=== PATIENT | male | born 1980 | race Caucasian/White ===

== ENCOUNTER 2019-09-28 05:23 | Day surgery (SDC) | payer OTHER, SELFPAY ==
[2019-09-14 13:00] VITALS: BMI 25.8
[2019-09-28] VITALS (9 sets, daily range): BP systolic 110–133; BP diastolic 73–115; PULSE 57–79; RESP 16; TEMP 35.9–36.3; O2SAT 96–100; BMI 27.8
--- NOTE | 2019-09-28 05:49 | PCM.HP.BLA ---
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 Enoch Choi MD) Ganglion cyst (Acute) Epididymitis (Acute) Family history of malignant neoplasm of colon in father (Acute) Screening for malignant neoplasm of intestine (Acute) Family history of colon cancer (Acute) Testicular pain (Acute) Surgical History (Updated 09/14/19 @ 12:58 by Brittny Jha) History of tonsillectomy (Acute) Family History (Updated 09/14/19 @ 12:58 by Brittny Jha) Father Colon cancer Grandfather Colon cancer Social History (Updated 09/14/19 @ 13:[address] Enoch Choi MD) Smoking Status: Never smoker alcohol intake: current alcohol intake frequency: a few times a month substance use type: does not use HPI HPI HPI: AURELIA RIVERA, is a 39 M who presents to the office today for surgical consultation regarding a screening colonoscopy. The patient is referred by his primary care is Dr. Eduardo Ulrich and a written complement surgical consult recommendations will be returned to him. The patient also has concerns. He has had a remote bilateral partial vasectomy as a means of sterilization. In the past 2 years he has had 2 episodes of epididymitis. Most recent episode was approximately 1 week ago but he got that to resolve with ice and ibuprofen. He did not require antibiotics. Finally while the patient was here he asked about a ganglion cyst of the left wrist. 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 He is very aggressive with the activity and use of his hands arms. His family history is notable that his father had colon cancer in his 50s. Paternal grandfather had colon cancer. Maternal grand father had colon cancer. He denies any previous endoscopy. He denies bright red blood per rectum or melena. He denies any expected weight loss. He is not aware of any polyposis syndromes in his family. He is not aware of any known inherited genetic defect. HPI HPI HPI: AURELIA RIVERA, is a 39 M who presents to the office today for ROS General General: No weight change, appetite, fatigue, colon cancer, breast cancer or weakness HEENT HEENT: No difficulty swallowing, eye injury, eye surgery, swollen glands or hoarseness Endo Endocrine: No thyroid disease, diabetes mellitus, thyroid cancer, Hair loss, heat intolerance or cold intolerance Skin Skin: No rash or changing moles Breast Breast: No left breast lump, right breast lump, nipple discharge, breast pain, abnormal mammogram, abnormal US or breast enlargement Musc Musculoskeletal: No back problems, arthritis, rheumatoid arthritis, gout or joint pain Cardio Cardiovascular: No murmur, pacemaker, heart disease, atrial fibrillation, high blood pressure, heart attack, heart stent, palpitations, shortness of breat with exertion or chest pain Psych Psychiatric: No depression, anxiety or hearing voices Resp Respiratory: No shortness of breath, No sleep apnea, No cough, No COPD, No asthma, No emphysema, No wheezing Gastro Gastrointestinal: No abdominal pain, No nausea or vomiting, No diarrhea, No constipation, No blood in stool, No acid reflux, No hemorrhoids, No ulcers, No gallbladder problem, No black,tarry stools Samy Hematologic: No blood thinners, No blood disorders, No bleeding, No anemia, No blood clots Neuro Neurologic: No system reviewed and no additional complaints, except as docu, No as per HPI, No abnormal walking, No abnormal hearing, No abnormal movements, No abnormal speech, No behavioral changes, No burning sensations, No confusion, No seizure-like activity, No unsteadiness, No dizziness, No localized weakness, No frequent falls, No headache(s), No lack of coordination, No loss of vision, No memory loss, Yes numbness, No other visual disturbances, No radiating pain, No restless legs, No sensory deficit, No fainting, Yes tingling, No tremor(s), No weakness, No other Exam Const General: cooperative, healthy appearing, comfortable, no acute distress Nutritional Appearance: average body habitus, well nourished Orientation: alert, awake HENMT Head: normal to inspection Chest Breast Palpation: No nipple discharge Resp Effort & Inspection: normal respiratory effort Auscultation: clear to auscultation bilaterally Cardio Rate: regular rate Rhythm: regular rhythm Heart Sounds: no murmurs GI Palpation: soft, no hepatosplenomegaly Auscultation: normal bowel sounds Neuro General: alert, awake Cognition: normal cognition Extrem General: calf tenderness Other: 2 cm diameter ganglion cyst radial volar aspect left wrist Psych Affect: normal affect Assessment & Plan Problems 1. Screening for malignant neoplasm of intestine Z12.10 2. Family history of malignant neoplasm of colon in father Z80.0 3. Epididymitis N45.1 4. Ganglion cyst M67.40 Plan I recommended the patient a screening colonoscopy with possible biopsy or polypectomy as indicated. He is aware of the technique, benefit, risk, alternatives. He has had an opportunity to ask and have questions answered. He is aware of the COVID 19 pandemic. He is aware that [facility] a [facility] local incidence. Regarding the patient's epididymitis he has had 2 episodes over an 8-year period of time. He was able to get his most recent episode resolved with ibuprofen and ice. I do not believe that surgical treatment will be required. He is aware that if he has further recurrence that urology consultation would be pertinent. Regarding the ganglion cyst left wrist it is completely asymptomatic. It is not limiting his ability. With that in mind I am not recommending any type of aspiration or steroid injection or excisional treatment. I appreciate the opportunity of assisting with his surgical care. We will proceed with scheduling colonoscopy as indicated. Cc: Dr. Eduardo Choi M.D., F.A.C.S. Coding Level of Care Code 23038 Diagnoses Screening for malignant neoplasm of intestine Z12.10 Family history of malignant neoplasm of colon in father Z80.0 Epididymitis N45.1 Ganglion cyst M67.40 I have re-examined the patient. There are no clinical changes since date of exam. Procedure Criteria Procedure Type: Elective COVID Risk Discussion: The surgeon/proceduralist and patient have discussed in detail the risk of exposure to and/or potential harm posed by the COVID-19 virus with having a surgery/procedure at this time versus the risk of delaying the surgery/procedure. It is not possible to know either the risk of delaying the surgery or procedure or chance of getting an infection with perfect accuracy, but a joint decision was made between the patient and the surgeon/proceduralist to proceed at this time with the scheduled surgery/procedure as indicated on the consent form.
[2019-09-28] MEDS: Lactated Ringers 1,000 ML 100 ML IV (06:07)
--- NOTE | 2019-09-28 06:52 | OP.CCLET_ITS ---
09/28/2019 Eduardo Ulrich [address] [place] [address] Re : Colonoscopy procedure for Estuardo Christie Dear Dr. Ulrich This procedure was performed on Saturday, September 28, 2019. My impressions and recommendations are as follows: Impressions : - Non-thrombosed internal hemorrhoids and internal hemorrhoids that prolapse with straining, but spontaneously regress to the resting position (Grade II) found on digital rectal exam. - The entire examined colon is normal. - No specimens collected. Recommendations : - Discharge patient to home. - Resume previous diet. - Continue present medications. - Repeat colonoscopy in 5 years for surveillance. My findings are described in the full procedure note, which is enclosed. If I can be of further assistance, please feel free to contact me at Doctor phone number(s): Work: . Sincerely, Enoch Choi MD 09/28/2019 6:52:34 AM This report has been signed electronically.
--- NOTE | 2019-09-28 06:52 | OP.COLON_ITS ---
Patient Name: Estuardo Christie Procedure Date: 09/28/2019 5:47 AM Date of : 1980 Age: 39 Procedure: Colonoscopy Indications: Family history of colon cancer in a first-degree relative Providers: Enoch Choi MD Referring MD: Eduardo Ulrich Medicines: Midazolam 5 mg IV, Meperidine 100 mg IV, Ondansetron 4 mg IV Patient Profile: Last Colonoscopy: none. The patient's first colonoscopy is today. Complications: No immediate complications. Procedure: Pre-Anesthesia Assessment: - Prior to the procedure, a History and Physical was performed, and patient medications and allergies were reviewed. The patient's tolerance of previous anesthesia was also reviewed. The risks and benefits of the procedure and the sedation options and risks were discussed with the patient. All questions were answered, and informed consent was obtained. Prior Anticoagulants: The patient has taken no previous anticoagulant or antiplatelet agents. ASA Grade Assessment: II - A patient with mild systemic disease. After reviewing the risks and benefits, the patient was deemed in satisfactory condition to undergo the procedure. After I obtained informed consent, the scope was passed under direct vision. Throughout the procedure, the patient's blood pressure, pulse, and oxygen saturations were monitored continuously. The pediatric colonoscope was introduced through the anus and advanced to the cecum, identified by appendiceal orifice and ileocecal valve. The colonoscopy was performed without difficulty. The patient tolerated the procedure well. The quality of the bowel preparation was good. The ileocecal valve and the appendiceal orifice were photographed. Moderate Sedation: Moderate (conscious) sedation was personally administered by the endoscopist. The following parameters were monitored: oxygen saturation, heart rate, blood pressure, and response to care. Total physician intraservice time was 15 minutes. Scope In: 6:37:40 AM Scope Withdrawal Time 0 hours 6 minutes 34 seconds Scope Out: 6:47:02 AM Total Procedure Duration Time 0 hours 9 minutes 22 seconds Findings: The digital rectal exam findings include non-thrombosed internal hemorrhoids and internal hemorrhoids that prolapse with straining, but spontaneously regress to the resting position (Grade II). Pertinent negatives include normal prostate (size, shape, and consistency). The colon (entire examined portion) appeared normal. Impression: - Non-thrombosed internal hemorrhoids and internal hemorrhoids that prolapse with straining, but spontaneously regress to the resting position (Grade II) found on digital rectal exam. - The entire examined colon is normal. - No specimens collected. Recommendation: - Discharge patient to home. - Resume previous diet. - Continue present medications. - Repeat colonoscopy in 5 years for surveillance. Procedure Code(s): --- Professional --- 89332, Colonoscopy, flexible; diagnostic, including collection of specimen(s) by brushing or washing, when performed (separate procedure) 48056, 59, Moderate sedation services provided by the same physician or other qualified health health care coordinator performing the diagnostic or therapeutic service that the sedation supports, requiring the presence of an independent trained observer to assist in the monitoring of the patient's level of consciousness and physiological status; initial 15 minutes of intraservice time, patient age 5 years or older Diagnosis Code(s): --- Professional --- K64.1, Second degree hemorrhoids Z80.0, Family history of malignant neoplasm of digestive organs CPT copyright 2017 [employer]. All rights reserved. The codes documented in this report are preliminary and upon pipe turner review may be revised to meet current compliance requirements. Enoch Choi MD 09/28/2019 6:52:34 AM This report has been signed electronically. Number of Addenda: 0 Note Initiated On: 09/28/2019 5:47 AM
[2019-09-28 07:47] LABS: Probe Check PASS; Specimen Processing Control PASS
== END 2019-09-28 08:03 | disposition home or self-care (01) ==
LOC: EN 05:24 → AC 05:26
PROVIDERS: PCP Family Medicine; Referring Provider Family Medicine; Visit Provider Surgery
PROC: 0DJD8ZZ Inspection of Lower Intestinal Tract, Via Natural or Artificial Opening Endoscopic (ICD-10-PCS; CPT 45378; principal; 2019-09-28 06:25)
DX: Z12.11 Encounter for screening for malignant neoplasm of colon (principal); Z11.59 Encounter for screening for other viral diseases; K64.1 Second degree hemorrhoids; Z98.52 Vasectomy status; Z80.0 Family history of malignant neoplasm of digestive organs
CPT/HCPCS: 45378; 87635; 99152; 99153; G2023; J7120; J2405; U0003

== ENCOUNTER 2020-06-23 13:20 | Outpatient (RCR) | payer OTHER, SELFPAY ==
[2019-09-28 05:47] VITALS: BMI 27.8
== END 2020-09-05 23:59 ==
LOC: IMMUN 13:20
PROVIDERS: PCP Family Medicine; Visit Provider Family Medicine
DX: Z23 Encounter for immunization (principal)
CPT/HCPCS: 0001A; 0002A; 91300